=== PATIENT | female | born 1950 | race Caucasian/White ===

== ENCOUNTER 2019-04-19 07:04 | Outpatient (CLI) | payer OTHER ==
[~2019-04-19 07:04] MED LIST: ATORVASTATIN CA20 MG; CARVEDILOL25 MG PO; CATAPRES0.1 MG PO; GLUCOPHAGE XR500 MG PO; HYZAAR 100-251 UDTAB PO; LOSARTAN-HCTZ1 EAC1; PROCARDIA90 MG/BLIS PO; ZOCOR20 MG PO
== END 2019-04-19 07:10 | disposition home or self-care (01) ==
LOC: SONOGRAMA 07:04 → MAMO-SONO 07:15
DX: N19 Unspecified kidney failure (principal); N13.8 Other obstructive and reflux uropathy

== ENCOUNTER 2020-04-17 21:47 | Emergency (ER) | payer OTHER ==
[~2020-04-17] VITALS: Ht 167.6 cm; Wt 61.7 kg
== END 2020-04-18 06:45 | disposition home or self-care (01) ==
LOC: ER 21:47
DX: R07.89 Other chest pain (principal); I48.91 Unspecified atrial fibrillation

== ENCOUNTER 2021-08-19 09:06 | Emergency (ER) | payer OTHER ==
[~2021-08-19] VITALS: Ht 157.5 cm; Wt 65.3 kg
[2021-08-19] MEDS ORDERED: SPIRONOLACTONE25 MG (09:22)
[2021-08-19] MEDS ORDERED: COZAAR100 MG (09:22)
[2021-08-19] MEDS ORDERED: ELIQUIS5 M1 (09:23)
[2021-08-19] MEDS ORDERED: CHLORTHALIDONE25 MG (09:23)
[2021-08-19] MEDS ORDERED: PEPCID AC20 MG (09:23)
[2021-08-19] MEDS ORDERED: HYDRALAZINE HCL25 MG (09:24)
== END 2021-08-19 16:54 | disposition home or self-care (01) ==
LOC: ER 09:06
DX: K52.89 Other specified noninfective gastroenteritis and colitis (principal); R10.31 Right lower quadrant pain; I10 Essential (primary) hypertension

== ENCOUNTER 2021-08-21 14:52 | Inpatient (IN) | payer OTHER ==
[~2021-08-21] VITALS: Ht 160 cm; Wt 74.4 kg
[~2021-08-21 14:52] MED LIST changes: +CHLORTHALIDONE25 MG; +COZAAR100 MG; +ELIQUIS5 M1; +HYDRALAZINE HCL25 MG; +PEPCID AC20 MG; +SPIRONOLACTONE25 MG
--- NOTE | 2021-08-21 15:20 | NUR ---
PTE REFIERE QUE TIENE UN ANASTASIA DOLOR ABDOMINAL DESDE INDERJIT
--- NOTE | 2021-08-21 16:10 | NUR ---
MRS. BELTRAN EDUCA A PTE SOBRE [place] MEDICO ESTA REFIERE ENTENDER. SE LUIS ALFREDO MUESTRA DE LABORATORIO UTILIZANDO MEDIDAS ASEPTICAS. SE COLOCA H/L EL CUAL SE ENCUENTRA PATENTE. SE ADMNISTRAN MEDICAMENTOS A PTE LOS CUALES [place]. SE NOTIFICA ESTUDIO DE RX PENDIENTE A REALIZAR.
== END 2021-08-24 12:52 | disposition home or self-care (01) | DRG 392 ==
LOC: ER 14:52 → MEDJ 23:41
PROVIDERS: ADMIT Internal Medicine; ATTEND Internal Medicine
PROC: BW211ZZ Computerized Tomography (CT Scan) of Abdomen and Pelvis using Low Osmolar Contrast (ICD-10-PCS; principal; 2021-08-21)
DX: K52.89 Other specified noninfective gastroenteritis and colitis (principal); N39.0 Urinary tract infection, site not specified; N17.9 Acute kidney failure, unspecified; I48.21 Permanent atrial fibrillation; I10 Essential (primary) hypertension; E86.0 Dehydration; E78.5 Hyperlipidemia, unspecified; E11.9 Type 2 diabetes mellitus without complications; Z79.84 Long term (current) use of oral hypoglycemic drugs

== ENCOUNTER 2021-12-07 22:57 | Inpatient (IN) | payer OTHER ==
[~2021-12-07] VITALS: Ht 160 cm; Wt 63.5 kg
== END 2021-12-10 13:42 | disposition designated cancer center or children's hospital (05) | DRG 310 ==
LOC: ER 22:57 → SEC-K 12-08 14:31 → MEDI 12-08 14:31
PROVIDERS: ADMIT Internal Medicine; ATTEND Internal Medicine
PROC: B24BZZZ Ultrasonography of Heart with Aorta (ICD-10-PCS; principal; 2021-12-08)
PROC: 3E0F7SF Introduction of Other Gas into Respiratory Tract, Via Natural or Artificial Opening (ICD-10-PCS; 2021-12-08)
PROC: 4A12X4Z Monitoring of Cardiac Electrical Activity, External Approach (ICD-10-PCS; 2021-12-08)
DX: I48.0 Paroxysmal atrial fibrillation (principal); I11.9 Hypertensive heart disease without heart failure; E11.9 Type 2 diabetes mellitus without complications; E86.0 Dehydration; Z20.822 Contact with and (suspected) exposure to COVID-19

== ENCOUNTER 2024-12-24 07:12 | Emergency (ER) | payer OTHER ==
[~2024-12-24] VITALS: Ht 157.5 cm; Wt 69.9 kg
[2024-12-24] MEDS ORDERED: DICLOFENAC SODI75 MG PO (08:40)
[2024-12-24] MEDS ORDERED: NORFLEX100MG PO (08:40)
[2024-12-24] MEDS ORDERED: KETOROLAC TROMETHAMINE 60 MG VIAL IM ONE ×2 (08:44→08:45)
[2024-12-24] MEDS ORDERED: ORPHENADRINE CITRATE 30 MG/ML AMPUL ONE (08:44)
[2024-12-24] MEDS ORDERED: ORPHENADRINE CITRATE 30 MG/ML AMPUL IM ONE (08:45)
== END 2024-12-24 08:54 | disposition home or self-care (01) ==
LOC: ER 07:15
DX: M62.838 Other muscle spasm (principal); M54.2 Cervicalgia; I10 Essential (primary) hypertension; E11.9 Type 2 diabetes mellitus without complications; Z79.84 Long term (current) use of oral hypoglycemic drugs; Z88.0 Allergy status to penicillin
CPT/HCPCS: 96372; 99282; J1885; J2360